=== PATIENT | female | born 1960 | race Caucasian/White ===

== ENCOUNTER 2022-04-06 07:58 | Emergency (ER) | payer OTHER ==
[~2022-04-06] VITALS: Ht 160 cm; Wt 49.9 kg
--- NOTE | 2022-04-06 08:11 | NUR ---
Patient came in to the er c/o left knee pain since yesterday 07/13 ps. Accompanied by friend. On room air, breathing evenly and unaabored. Kept comfortable will continue to monitor accordingly.
--- NOTE | 2022-04-06 08:19 | NUR ---
DR. LOERA AT BEDSIDE FOR EVAL
[2022-04-06] MEDS ORDERED: IBUPROFEN 400 MG TABLET PO ONE (08:30)
[2022-04-06] MEDS ORDERED: IBUPROFEN 400 MG TABLET ONE (08:31)
--- NOTE | 2022-04-06 09:47 | NUR ---
X RAY AT BEDSIDE
[2022-04-06] MEDS ORDERED: IBUP800T54 PO (10:14)
[2022-04-06 10:45] VITALS: BP 134/82
--- NOTE | 2022-04-06 10:46 | NUR ---
Patient discharged to home in stable condition. Written and verbal after care instructions given. Patient verbalizes understanding of instruction. KIM wrap on left knee intact; patient w/ crutches upon discharge.
== END 2022-04-06 10:46 | disposition home or self-care (01) ==
LOC: ER 08:02
DX: M25.562 Pain in left knee (principal); E78.5 Hyperlipidemia, unspecified; Z87.39 Personal history of other diseases of the musculoskeletal system and connective tissue; Z79.1 Long term (current) use of non-steroidal anti-inflammatories (NSAID)
CPT/HCPCS: 73564-TC